=== PATIENT | male | born 1940 | race Two or more races ===

== ENCOUNTER → 2017-03-04 | Outpatient (CLI) | payer MEDICARE, OTHER ==
[2017-03-04 08:32] LABS: ALBUMIN 3.9 GM/DL (3.2-5.2); ALBUMIN/GLOBULIN RATIO 1.15 (1.00-1.93); BILIRUBIN,TOTAL 0.7 MG/DL (0.2-1.0); CREATININE FOR GFR 1.4 MG/DL (0.70-1.30); GLOMERULAR FILTRATION RATE 52.2 (>42); POTASSIUM SERUM 3.6 MEQ/L (3.5-5.1); TOTAL PROTEIN 7.3 GM/DL (6.4-8.2)
== END ==
LOC: M LAB 07:26
PROVIDERS: ATTEND Physician Assistant
DX: E78.00 Pure hypercholesterolemia, unspecified (principal); I50.42 Chronic combined systolic (congestive) and diastolic (congestive) heart failure; R73.9 Hyperglycemia, unspecified

== ENCOUNTER → 2017-10-31 | Outpatient (CLI) | payer MEDICARE, OTHER ==
[2017-10-31 07:53] LABS: ALBUMIN 3.9 GM/DL (3.2-5.2); ALBUMIN/GLOBULIN RATIO 1.15 (1.00-1.93); ALKALINE PHOSPHATASE 59 U/L (45-117); ALT/SGPT 29 U/L (12-78); ANION GAP 8 MEQ/L (8-16); AST/SGOT 15 U/L (7-37); BILIRUBIN,TOTAL 0.4 MG/DL (0.2-1.0); BLOOD UREA NITROGEN 25 MG/DL (7-18); CALCIUM LEVEL 8.8 MG/DL (8.8-10.2); CARBON DIOXIDE LEVEL 27 MEQ/L (21-32); CHLORIDE LEVEL 108 MEQ/L (98-107); CHOLESTEROL LEVEL 135 MG/DL (<200); CREATININE FOR GFR 1.36 MG/DL (0.70-1.30); GLUCOSE, FASTING 117 MG/DL (70-100); HDL CHOLESTEROL 45 MG/DL (>40); NON-HDL-C 90 MG/DL; POTASSIUM SERUM 4.2 MEQ/L (3.5-5.1); SODIUM LEVEL 143 MEQ/L (136-145); TOTAL PROTEIN 7.3 GM/DL (6.4-8.2); TRIGLYCERIDES LEVEL 90 MG/DL (<150)
== END ==
LOC: M LAB 06:57
DX: I25.10 Atherosclerotic heart disease of native coronary artery without angina pectoris (principal); E78.00 Pure hypercholesterolemia, unspecified; I50.42 Chronic combined systolic (congestive) and diastolic (congestive) heart failure
CPT/HCPCS: 80053

== ENCOUNTER → 2018-05-26 | Outpatient (CLI) | payer MEDICARE, OTHER ==
[2018-05-26 07:50] LABS: ESTIMATED AVERAGE GLUCOSE 151 MG/DL (60-110); HEMOGLOBIN A1c 6.9 %
[2018-05-26 07:52] LABS: ALKALINE PHOSPHATASE 66 U/L (45-117); ALT/SGPT 32 U/L (12-78); ANION GAP 8 MEQ/L (8-16); AST/SGOT 17 U/L (7-37); BILIRUBIN,TOTAL 0.4 MG/DL (0.2-1.0); BLOOD UREA NITROGEN 29 MG/DL (7-18); CALCIUM LEVEL 9.3 MG/DL (8.8-10.2); CARBON DIOXIDE LEVEL 27 MEQ/L (21-32); CHLORIDE LEVEL 109 MEQ/L (98-107); CREATININE FOR GFR 1.66 MG/DL (0.70-1.30); GLOMERULAR FILTRATION RATE 42.8 (>42); GLUCOSE, FASTING 116 MG/DL (70-100); POTASSIUM SERUM 4.5 MEQ/L (3.5-5.1); SODIUM LEVEL 144 MEQ/L (136-145)
[2018-05-26 07:53] LABS: ALBUMIN/GLOBULIN RATIO 1.25 (1.00-1.93); CHOLESTEROL LEVEL 128 MG/DL (<200); CHOLESTEROL RISK RATIO 3.282 (<5); HDL CHOLESTEROL 39 MG/DL (>40); LDL CHOLESTEROL 72 MG/DL (<100); NON-HDL-C 89 MG/DL; TOTAL PROTEIN 7.2 GM/DL (6.4-8.2); TRIGLYCERIDES LEVEL 86 MG/DL (<150)
[2018-05-26 08:00] LABS: MALB URINE SIEMENS 5.6 MG/L
[2018-05-26 08:03] LABS: MAU/CREAT RATIO 3.8 MCG/MG (0.0-30.0)
== END ==
LOC: M LAB 06:40
DX: E11.9 Type 2 diabetes mellitus without complications (principal)
CPT/HCPCS: 80053

== ENCOUNTER → 2018-11-24 | Outpatient (CLI) | payer MEDICARE, OTHER ==
[2018-11-24 11:25] LABS: ALBUMIN 3.8 GM/DL (3.2-5.2); BILIRUBIN,TOTAL 0.6 MG/DL (0.2-1.0); CALCIUM LEVEL 8.7 MG/DL (8.8-10.2); CHOLESTEROL RISK RATIO 4.424 (<5); CREATININE FOR GFR 1.79 MG/DL (0.70-1.30); GLOMERULAR FILTRATION RATE 39.2 (>42); TOTAL PROTEIN 7.5 GM/DL (6.4-8.2)
[2018-11-24 14:26] LABS: HEMOGLOBIN A1c 7.5 %
== END ==
LOC: M LAB 07:47
PROVIDERS: ATTEND Nurse Practitioner Family
DX: E11.9 Type 2 diabetes mellitus without complications (principal)

== ENCOUNTER 2019-04-27 10:04 | Emergency (ER) | payer MEDICARE, OTHER ==
[~2019-04-27] VITALS: Ht 167.6 cm; Wt 84.3 kg
[2019-04-27 10:05] VITALS: BP 134/75
[2019-04-27] MEDS ORDERED: CARV25TA (10:13)
[2019-04-27] MEDS ORDERED: MAG400TA (10:13)
[2019-04-27] MEDS ORDERED: JANU25TA (10:13)
[2019-04-27] MEDS ORDERED: FERR150C (10:13)
[2019-04-27] MEDS ORDERED: ALLO100T (10:13)
[2019-04-27] MEDS ORDERED: ATOR1TAB21 (10:13)
[2019-04-27] MEDS ORDERED: SPIR-10 (10:13)
[2019-04-27] MEDS ORDERED: FAMO40TA3 (10:13)
[2019-04-27] MEDS ORDERED: LISI-1046 (10:13)
[2019-04-27] MEDS ORDERED: AMOX500C PO (10:32)
[2019-04-27] MEDS ORDERED: ACET-897 PO (10:32)
[2019-04-27] MEDS ORDERED: AMOXICILLIN 500 MG CAP PO ONE (10:45)
[2019-04-27] MEDS ORDERED: IBUPROFEN 600 MG TAB PO ONE (10:45)
== END 2019-04-27 10:36 | disposition home or self-care (01) ==
LOC: M ED 10:04
DX: K04.7 Periapical abscess without sinus (principal); K08.89 Other specified disorders of teeth and supporting structures; E11.9 Type 2 diabetes mellitus without complications; K21.9 Gastro-esophageal reflux disease without esophagitis; I10 Essential (primary) hypertension; E78.5 Hyperlipidemia, unspecified

== ENCOUNTER → 2019-07-08 | Outpatient (CLI) | payer MEDICARE, OTHER ==
[~2019-07-08] MED LIST: ACET-897 PO; ALLO100T; AMOX500C PO; ATOR1TAB21; CARV25TA; FAMO40TA3; FERR150C; JANU25TA; LISI-1046; MAG400TA; SPIR-10
[2019-07-08 08:50] LABS: ALBUMIN 4.1 GM/DL (3.2-5.2); BILIRUBIN,TOTAL 0.6 MG/DL (0.2-1.0); CALCIUM LEVEL 9.8 MG/DL (8.8-10.2); CREATININE FOR GFR 1.65 MG/DL (0.70-1.30); GLOMERULAR FILTRATION RATE 42.9 (>35); TOTAL PROTEIN 7.7 GM/DL (6.4-8.2)
[2019-07-08 10:34] LABS: HEMOGLOBIN A1c 6.9 %
== END ==
LOC: M LAB 07:06
PROVIDERS: ATTEND Nurse Practitioner Family
DX: E11.9 Type 2 diabetes mellitus without complications (principal)

== ENCOUNTER → 2020-12-13 | Outpatient (REF) | payer MEDICARE, OTHER ==
[~2020-12-13] MED LIST changes: -LISI-1046; +LISI2.5T2; -MAG400TA; +MAGN400T35
[2020-12-13 16:47] LABS: CHOLESTEROL RISK RATIO 4.363 (<5); FREE T4 0.86 NG/DL (0.76-1.46); MAU/CREAT RATIO 4.2 MCG/MG (0.0-30.0); THYROID STIMULATING HORMONE 2.09 uIU/ML (0.358-3.740)
[2020-12-13 17:30] LABS: HEMOGLOBIN A1c 6.8 %
== END ==
LOC: M SFHCCLAY 10:21
PROVIDERS: ATTEND Nurse Practitioner Family
DX: E11.36 Type 2 diabetes mellitus with diabetic cataract (principal); M25.512 Pain in left shoulder; G89.29 Other chronic pain; I11.0 Hypertensive heart disease with heart failure; E78.00 Pure hypercholesterolemia, unspecified; I25.10 Atherosclerotic heart disease of native coronary artery without angina pectoris
CPT/HCPCS: 80061; 82043; 83036; 84439; 84443; G0463

== ENCOUNTER → 2021-02-28 | Outpatient (REF) | payer MEDICARE, OTHER ==
[2021-02-28 18:54] LABS: PERCENT SATURATION 24.8 % (19.7-50.0)
== END ==
LOC: M LAB REF 17:18
PROVIDERS: ATTEND Internal Medicine Nephrology
DX: D50.9 Iron deficiency anemia, unspecified (principal)

== ENCOUNTER → 2022-03-15 | Outpatient (REF) | payer MEDICARE, OTHER ==
[~2022-03-15] MED LIST changes: -LISI2.5T2; +LISI2.5T9
== END ==
LOC: M SFHCDERM 16:26
PROVIDERS: ATTEND Nurse Practitioner Family
DX: C44.329 Squamous cell carcinoma of skin of other parts of face (principal); L57.0 Actinic keratosis

== ENCOUNTER → 2022-05-30 | Outpatient (REF) | payer MEDICARE, OTHER | LOC: M SFHCDERM 14:23 | PROVIDERS: ATTEND Dermatology | DX: L57.0 Actinic keratosis (principal) ==

== ENCOUNTER → 2023-07-22 | Outpatient (CLI) | payer MEDICARE, OTHER ==
[2023-07-22 08:20] LABS: HEMATOCRIT 39.9 % (42.0-52.0); MEAN CORPUSCULAR HEMOGLOBIN 31.2 pg (27.0-33.0); MEAN CORPUSCULAR HGB CONC 32.6 g/dl (32.0-36.5); MEAN CORPUSCULAR VOLUME 95.7 fl (80.0-96.0); PLATELET COUNT, AUTOMATED 220 10^3/uL (150-450); RED BLOOD COUNT 4.17 10^6/uL (4.30-6.10)
[2023-07-22 08:47] LABS: ALBUMIN 3.9 G/DL (3.2-5.2); BILIRUBIN,TOTAL 0.8 MG/DL (0.3-1.2); CALCIUM LEVEL 9.1 MG/DL (8.3-10.6); CHOLESTEROL RISK RATIO 4.1 (<5); CREATININE FOR GFR 1.4 MG/DL (0.70-1.30); GLOMERULAR FILTRATION RATE 51.4 (>35); HDL CHOLESTEROL 38.5 MG/DL (>40); LDL CHOLESTEROL 90.7 MG/DL (<100); NON-HDL-C 119.5 MG/DL; TOTAL PROTEIN 7.3 G/DL (5.7-8.2)
== END ==
LOC: M LAB 07:32
PROVIDERS: ATTEND Physician Assistant
DX: E78.00 Pure hypercholesterolemia, unspecified (principal)

== ENCOUNTER → 2024-01-27 | Outpatient (CLI) | payer MEDICARE, OTHER ==
[2024-01-27 08:50] LABS: CALCIUM LEVEL 9.1 MG/DL (8.3-10.6); CREATININE FOR GFR 1.47 MG/DL (0.70-1.30); GLOMERULAR FILTRATION RATE 48.5 (>35); MAGNESIUM LEVEL 1.8 MG/DL (1.8-2.4); POTASSIUM SERUM 4.6 MMOL/L (3.5-5.1)
== END ==
LOC: M LAB 07:40
PROVIDERS: ATTEND Physician Assistant
DX: I50.42 Chronic combined systolic (congestive) and diastolic (congestive) heart failure (principal)

== ENCOUNTER 2024-08-04 17:05 | Inpatient (IN) | payer MEDICARE, OTHER ==
[~2024-08-04] VITALS: Ht 182.9 cm; Wt 80.9 kg
[~2024-08-04 17:05] MED LIST changes: -ATOR1TAB21; +ATOR1TAB21 PO; -CARV25TA; +CARV25TA PO; -FAMO40TA3; +FAMO40TA3 PO; -FERR150C; +FERR150C PO; -JANU25TA; +JANU25TA PO; -LISI2.5T9; +LISI2.5T9 PO; -MAGN400T35; +MAGN400T35 PO
[2024-08-04] MEDS: MORPHINE 4 MG/ML 1ML VIAL IV ONE ×2 (19:05→20:18)
[2024-08-04 19:44] LABS: BASO # 0.1 10^3/uL (0.0-0.2); BASO % 0.7 % (0.0-1.0); EOS # 0.1 10^3/uL (0.0-0.5); EOS % 0.9 % (0.0-3.0); HEMATOCRIT 40.2 % (42.0-52.0); HEMOGLOBIN 13.8 g/dl (13.5-17.5); LYMPH # 0.9 10^3/uL (1.5-5.0); LYMPH % 5.9 % (24.0-44.0); MEAN CORPUSCULAR HEMOGLOBIN 32.1 pg (27.0-33.0); MEAN CORPUSCULAR HGB CONC 34.3 g/dl (32.0-36.5); MEAN CORPUSCULAR VOLUME 93.5 fl (80.0-96.0); MONO # 1.6 10^3/uL (0.0-0.8); MONO % 10.3 % (2.0-8.0); NEUTROPHILS # 12.4 10^3/uL (1.5-8.5); NEUTROPHILS % 81.7 % (36.0-66.0); PLATELET COUNT, AUTOMATED 219 10^3/uL (150-450); WHITE BLOOD COUNT 15.1 10^3/uL (4.0-10.0)
[2024-08-04 20:04] LABS: INR 1.02; PARTIAL THROMBOPLASTIN TIME 25.3 SECONDS (24.8-34.2); PROTHROMBIN TIME 13.7 SECONDS (12.5-14.5)
[2024-08-04 20:06] LABS: CK-MB VALUE MASS 2.4 NG/ML (<3.6)
[2024-08-04 20:08] LABS: BLOOD UREA NITROGEN 23 MG/DL (9-23); CALCIUM LEVEL 9.3 MG/DL (8.3-10.6); CARBON DIOXIDE LEVEL 24 MMOL/L (20-31); CHLORIDE LEVEL 106 MMOL/L (98-107); CREATININE FOR GFR 1.19 MG/DL (0.70-1.30); GLOMERULAR FILTRATION RATE > 60.0 (>35); GLUCOSE, FASTING 141 MG/DL (74-106); POTASSIUM SERUM 4.1 MMOL/L (3.5-5.1); SODIUM LEVEL 140 MMOL/L (136-145)
[2024-08-04 20:14] LABS: CPK CREATINE PHOSPHOKINASE 328 U/L (46-171); MB/CK RELATIVE INDEX 0.73 (< OR =4)
[2024-08-04] MEDS: BOOSTRIX VACCINE (TETANUS/DIPHTH/ACEL. PERTUSSIS) 0.5ML SYR IM.IMMUN ONE (20:17)
[2024-08-04] MEDS ORDERED: ASPI81TA26 PO (21:07)
[2024-08-04] MEDS ORDERED: HOME MED LIST COMPLETE! XX SCH (21:10)
[2024-08-04] MEDS ORDERED: ACETAMINOPHEN 325 MG TAB PO PRN (22:50)
[2024-08-04] MEDS ORDERED: KETOROLAC TROMETHAMINE 10 MG TAB PO PRN (22:50)
[2024-08-04] MEDS ORDERED: ISOVUE-370 76% 100ML VIAL As Ordered ONE (23:06)
[2024-08-04 23:39] VITALS: BP 156/86; TEMP 97.7; O2SAT 95
[2024-08-05] MEDS ORDERED: GLUCAGON INJ 1MG VIAL SC PRN (00:05)
[2024-08-05] MEDS ORDERED: GLUCOSE 4 GM CHEW PO PRN (00:05)
[2024-08-05] MEDS ORDERED: DEXTROSE 50% 50ML SYRINGE IV PRN (00:05)
[2024-08-05] MEDS: LISINOPRIL *2.5 MG* TAB PO SCH (00:20)
[2024-08-05] MEDS: CARVedilol 12.5 MG TAB PO SCH (00:20)
[2024-08-05] MEDS: ATORVASTATIN 10 MG TAB PO SCH (00:20)
[2024-08-05] MEDS: INSULIN LISPRO (NovoLOG) PER UNIT SC SCH (00:27)
[2024-08-05] MEDS: LR 1,000 ML IV ONE (00:27)
[2024-08-05] MEDS: MORPHINE 2 MG/ML 1ML VIAL IV PRN (00:27)
[2024-08-05 04:00] VITALS: BP 141/88; TEMP 97.7; O2SAT 92
[2024-08-05 06:50] LABS: ALBUMIN 3.4 G/DL (3.2-5.2); ALKALINE PHOSPHATASE 62 U/L (40-129); ALT/SGPT 23 U/L (7.0-40); AST/SGOT 25 U/L (<34); BILIRUBIN,TOTAL 1.1 MG/DL (0.3-1.2); BLOOD UREA NITROGEN 20 MG/DL (9-23); CALCIUM LEVEL 9.4 MG/DL (8.3-10.6); CARBON DIOXIDE LEVEL 25 MMOL/L (20-31); CHLORIDE LEVEL 104 MMOL/L (98-107); CREATININE FOR GFR 1.12 MG/DL (0.70-1.30); GLOMERULAR FILTRATION RATE > 60.0 (>35); GLUCOSE, FASTING 139 MG/DL (74-106); POTASSIUM SERUM 3.8 MMOL/L (3.5-5.1); SODIUM LEVEL 138 MMOL/L (136-145)
[2024-08-05 07:29] LABS: BASO # 0.1 10^3/uL (0.0-0.2); BASO % 0.8 % (0.0-1.0); EOS # 0.2 10^3/uL (0.0-0.5); EOS % 1.1 % (0.0-3.0); HEMATOCRIT 39.7 % (42.0-52.0); HEMOGLOBIN 13.6 g/dl (13.5-17.5); LYMPH # 0.7 10^3/uL (1.5-5.0); LYMPH % 4.8 % (24.0-44.0); MEAN CORPUSCULAR HEMOGLOBIN 31.9 pg (27.0-33.0); MEAN CORPUSCULAR HGB CONC 34.3 g/dl (32.0-36.5); MONO # 1.4 10^3/uL (0.0-0.8); MONO % 9.2 % (2.0-8.0); NEUTROPHILS # 12.4 10^3/uL (1.5-8.5); NEUTROPHILS % 83.3 % (36.0-66.0); PLATELET COUNT, AUTOMATED 201 10^3/uL (150-450); RED BLOOD COUNT 4.27 10^6/uL (4.30-6.10); WHITE BLOOD COUNT 14.9 10^3/uL (4.0-10.0)
[2024-08-05] MEDS: HEPARIN SOD (PORCINE) 5000UNITS/ML 1ML VIAL/SYRINGE SC SCH (09:00)
[2024-08-05 10:51] VITALS: BP 132/75
[2024-08-05 11:22] LABS: PROCALCITONIN 0.17 ng/ml
[2024-08-05] MEDS: D5W/0.9% SODIUM CHLORIDE 1,000 ML IV SCH (11:32)
[2024-08-05 12:00] VITALS: BP 147/98; TEMP 97.5; O2SAT 100
[2024-08-05 20:00] VITALS: BP 167/105; TEMP 97.8; O2SAT 99
[2024-08-06] VITALS (10 sets, daily range): BP systolic 117–166; BP diastolic 69–105; TEMP 97.3–98.1; O2SAT 90–95
[2024-08-06 06:56] LABS: BASO # 0.1 10^3/uL (0.0-0.2); BASO % 0.6 % (0.0-1.0); EOS # 0.3 10^3/uL (0.0-0.5); EOS % 1.7 % (0.0-3.0); HEMOGLOBIN 13.3 g/dl (13.5-17.5); LYMPH % 6.5 % (24.0-44.0); MEAN CORPUSCULAR HEMOGLOBIN 31.5 pg (27.0-33.0); MEAN CORPUSCULAR HGB CONC 33.3 g/dl (32.0-36.5); MEAN CORPUSCULAR VOLUME 94.8 fl (80.0-96.0); MONO # 1.8 10^3/uL (0.0-0.8); MONO % 11.8 % (2.0-8.0); NEUTROPHILS # 12.2 10^3/uL (1.5-8.5); NEUTROPHILS % 78.8 % (36.0-66.0); PLATELET COUNT, AUTOMATED 180 10^3/uL (150-450); RED BLOOD COUNT 4.22 10^6/uL (4.30-6.10); WHITE BLOOD COUNT 15.5 10^3/uL (4.0-10.0)
[2024-08-06 07:22] LABS: BLOOD UREA NITROGEN 23 MG/DL (9-23); CALCIUM LEVEL 9.1 MG/DL (8.3-10.6); CARBON DIOXIDE LEVEL 22 MMOL/L (20-31); CHLORIDE LEVEL 105 MMOL/L (98-107); CREATININE FOR GFR 1.18 MG/DL (0.70-1.30); GLOMERULAR FILTRATION RATE > 60.0 (>35); GLUCOSE, FASTING 131 MG/DL (74-106); MAGNESIUM LEVEL 1.5 MG/DL (1.8-2.4); POTASSIUM SERUM 3.9 MMOL/L (3.5-5.1); SODIUM LEVEL 140 MMOL/L (136-145)
[2024-08-06] MEDS ORDERED: D5W/0.9% SODIUM CHLORIDE 1,000 ML IV SCH (08:00)
[2024-08-06] MEDS: MAG SULF 1GM/100ML (MAG RUN) 1 GM in IV 1 EA IV SCH ×2 (08:18→13:57)
[2024-08-06] MEDS ORDERED: ONDANSETRON 4MG 2ML VIAL IV PRN (09:40)
[2024-08-06] MEDS ORDERED: fentaNYL 100 MCG/2 ML INJECTION IV PRN (09:40)
[2024-08-06] MEDS: VANCOMYCIN 500MG/10ML VIAL As Ordered ONE (09:41)
[2024-08-06] MEDS ORDERED: LIDOCAINE 2% 100MG/5ML SDV (FOR ANES.) As Ordered ONE (09:45)
[2024-08-06] MEDS ORDERED: fentaNYL 100 MCG/2 ML INJECTION As Ordered ONE (09:45)
[2024-08-06] MEDS ORDERED: ONDANSETRON 4MG 2ML VIAL As Ordered ONE (09:45)
[2024-08-06] MEDS ORDERED: KETOROLAC 60MG 2ML VIAL As Ordered ONE (09:45)
[2024-08-06] MEDS ORDERED: propofoL 200 MG/20 ML VIAL As Ordered ONE (09:45)
[2024-08-06] MEDS: ceFAZolin 2 GM/D5W 50 ML IV BAG As Ordered ONE (10:20)
[2024-08-06] MEDS ORDERED: VASOPRESSIN INJ 20UNITS/ML 1ML VIAL As Ordered ONE (11:09)
[2024-08-06] MEDS: TRANEXAMIC ACID 100 MG/ML 10ML VIAL As Ordered ONE (11:19)
[2024-08-06] MEDS ORDERED: DEXTROSE 50% 50ML SYRINGE IV PRN (14:30)
[2024-08-06] MEDS ORDERED: GLUCOSE 4 GM CHEW PO PRN (14:30)
[2024-08-06] MEDS: INSULIN LISPRO (NovoLOG) PER UNIT SC SCH ×2 (18:10→20:43)
[2024-08-06] MEDS: ceFAZolin SOD 2 GM in IV 1 EA IV SCH (18:10)
[2024-08-07 02:04] VITALS: BP 113/78; TEMP 97.7; O2SAT 96
[2024-08-07 05:34] LABS: BASO % 0.1 % (0.0-1.0); HEMATOCRIT 35.1 % (42.0-52.0); HEMOGLOBIN 11.8 g/dl (13.5-17.5); LYMPH # 0.5 10^3/uL (1.5-5.0); LYMPH % 3.3 % (24.0-44.0); MEAN CORPUSCULAR HEMOGLOBIN 31.5 pg (27.0-33.0); MEAN CORPUSCULAR HGB CONC 33.6 g/dl (32.0-36.5); MEAN CORPUSCULAR VOLUME 93.6 fl (80.0-96.0); MONO # 1.3 10^3/uL (0.0-0.8); MONO % 7.8 % (2.0-8.0); NEUTROPHILS # 14.5 10^3/uL (1.5-8.5); PLATELET COUNT, AUTOMATED 177 10^3/uL (150-450); RED BLOOD COUNT 3.75 10^6/uL (4.30-6.10); WHITE BLOOD COUNT 16.5 10^3/uL (4.0-10.0)
[2024-08-07 06:00] VITALS: BP 133/81; TEMP 98.1; O2SAT 93
[2024-08-07 06:04] LABS: CALCIUM LEVEL 8.7 MG/DL (8.3-10.6); CREATININE FOR GFR 1.41 MG/DL (0.70-1.30); GLOMERULAR FILTRATION RATE 50.9 (>35); MAGNESIUM LEVEL 2.1 MG/DL (1.8-2.4); POTASSIUM SERUM 4.2 MMOL/L (3.5-5.1)
[2024-08-07 08:34] VITALS: BP 153/71
[2024-08-07] MEDS ORDERED: OXYC-517 PO (09:38)
[2024-08-07] MEDS ORDERED: oxyCODONE 5MG TAB PO PRN (09:40)
[2024-08-07] MEDS ORDERED: INSUHUMDS SC (09:40)
[2024-08-07] MEDS ORDERED: HEPA500023 SC (09:41)
[2024-08-07] MEDS: NS (Normal Saline) 0.9% 1,000 ML IV SCH (10:02)
[2024-08-07 10:30] VITALS: BP 100/59; TEMP 97.7; O2SAT 92
[2024-08-07] MEDS: ASPIRIN 81MG ENTERIC TABLET PO SCH (10:30)
[2024-08-07] MEDS: FAMOTIDINE 20 MG TAB PO SCH (10:30)
[2024-08-07 14:30] VITALS: BP 102/60; TEMP 97.5; O2SAT 94
[2024-08-07] MEDS: oxyCODONE 5MG TAB PO PRN (15:04)
== END 2024-08-07 15:20 | DRG 522 ==
LOC: M ED 17:05 → EDBD 17:05 → M ED INP 22:47 → M MSPAV 23:34
PROVIDERS: ADMIT Student in an Organized Health Care Education/Training Program; ATTEND Internal Medicine
PROC: B246ZZZ Ultrasonography of Right and Left Heart (ICD-10-PCS; 2024-08-05)
PROC: 0SRS0J9 Replacement of Left Hip Joint, Femoral Surface with Synthetic Substitute, Cemented, Open Approach (ICD-10-PCS; principal; 2024-08-06 09:00)
DX: S72.012A Unspecified intracapsular fracture of left femur, initial encounter for closed fracture (principal); I50.32 Chronic diastolic (congestive) heart failure; I13.0 Hypertensive heart and chronic kidney disease with heart failure and stage 1 through stage 4 chronic kidney disease, or unspecified chronic kidney disease; W18.30XA Fall on same level, unspecified, initial encounter; Y92.019 Unspecified place in single-family (private) house as the place of occurrence of the external cause; Y93.89 Activity, other specified; Y99.8 Other external cause status; E78.5 Hyperlipidemia, unspecified; E11.22 Type 2 diabetes mellitus with diabetic chronic kidney disease; N18.30 Chronic kidney disease, stage 3 unspecified; F03.90 Unspecified dementia, unspecified severity, without behavioral disturbance, psychotic disturbance, mood disturbance, and anxiety; Z87.891 Personal history of nicotine dependence; H91.10 Presbycusis, unspecified ear; R91.8 Other nonspecific abnormal finding of lung field; Z79.82 Long term (current) use of aspirin; Z79.899 Other long term (current) drug therapy

== ENCOUNTER 2024-08-07 12:56 | Inpatient (IN) | payer MEDICARE, OTHER ==
[~2024-08-07] VITALS: Ht 167.6 cm; Wt 78.5 kg
[2024-08-07] MEDS: BISACODYL 5MG TAB PO SCH (09:00)
[~2024-08-07 12:56] MED LIST changes: +ASPI81TA26 PO; +HEPA500023 SC; +INSUHUMDS SC; +OXYC-517 PO
[2024-08-07] MEDS ORDERED: DEXTROSE 50% 50ML SYRINGE IV PRN (13:10)
[2024-08-07] MEDS ORDERED: oxyCODONE 5MG TAB PO PRN ×2 (13:10)
[2024-08-07] MEDS ORDERED: GLUCOSE 4 GM CHEW PO PRN (13:10)
[2024-08-07] MEDS ORDERED: GLUCAGON INJ 1MG VIAL SC PRN (13:10)
[2024-08-07] MEDS ORDERED: MAALOX 30 ML SUSP *UDC PO PRN (13:15)
[2024-08-07] MEDS ORDERED: SIMETHICONE 80MG CHEW TAB PO PRN (13:15)
[2024-08-07] MEDS ORDERED: MIRALAX *UNIT DOSE* 17GM PACKET PO PRN (13:15)
[2024-08-07] MEDS ORDERED: MOM 30ML SUSPENSION UDC PO PRN (13:15)
[2024-08-07] MEDS ORDERED: BISACODYL 10MG SUPP PR PRN (13:15)
[2024-08-07] MEDS ORDERED: ONDANSETRON 4MG TAB PO PRN (13:15)
[2024-08-07 15:30] VITALS: BP 144/74; TEMP 97; O2SAT 95
[2024-08-07] MEDS: INSULIN LISPRO (NovoLOG) PER UNIT SC SCH (18:34)
[2024-08-07 20:00] VITALS: BP 130/67; TEMP 97.6; O2SAT 93
[2024-08-07] MEDS: DOCUSATE SODIUM 100MG CAPSULE PO SCH (21:31)
[2024-08-07] MEDS: ACETAMINOPHEN 500 MG TAB PO SCH (21:31)
[2024-08-07] MEDS: ATORVASTATIN 10 MG TAB PO SCH (21:32)
[2024-08-07] MEDS: CARVedilol 12.5 MG TAB PO SCH (21:32)
[2024-08-07] MEDS: MAGNESIUM OXIDE 400MG TAB (MAG-OX) PO SCH (21:33)
[2024-08-07] MEDS: SENNA 8.6 MG TAB (SENOKOT) PO SCH (21:33)
[2024-08-07] MEDS: HEPARIN SOD (PORCINE) 5000UNITS/ML 1ML VIAL/SYRINGE SC SCH (21:33)
[2024-08-08 05:59] VITALS: TEMP 98.1
[2024-08-08 07:10] VITALS: BP 165/84; TEMP 97.9; O2SAT 95
[2024-08-08 07:14] LABS: BASO % 0.1 % (0.0-1.0); EOS % 0.1 % (0.0-3.0); HEMATOCRIT 32.1 % (42.0-52.0); HEMOGLOBIN 10.7 g/dl (13.5-17.5); LYMPH # 0.7 10^3/uL (1.5-5.0); MEAN CORPUSCULAR HEMOGLOBIN 31.6 pg (27.0-33.0); MEAN CORPUSCULAR HGB CONC 33.3 g/dl (32.0-36.5); MEAN CORPUSCULAR VOLUME 94.7 fl (80.0-96.0); MONO # 1.8 10^3/uL (0.0-0.8); MONO % 12.5 % (2.0-8.0); NEUTROPHILS # 11.6 10^3/uL (1.5-8.5); NEUTROPHILS % 81.4 % (36.0-66.0); PLATELET COUNT, AUTOMATED 186 10^3/uL (150-450); RED BLOOD COUNT 3.39 10^6/uL (4.30-6.10); WHITE BLOOD COUNT 14.3 10^3/uL (4.0-10.0)
[2024-08-08] MEDS: FAMOTIDINE 20 MG TAB PO SCH (07:22)
[2024-08-08] MEDS: ASPIRIN 81MG ENTERIC TABLET PO SCH (07:22)
[2024-08-08 07:44] LABS: CALCIUM LEVEL 8.6 MG/DL (8.3-10.6); CREATININE FOR GFR 1.49 MG/DL (0.70-1.30); GLOMERULAR FILTRATION RATE 47.7 (>35); POTASSIUM SERUM 4.5 MMOL/L (3.5-5.1)
[2024-08-08 11:41] VITALS: BP 139/71; TEMP 97.5; O2SAT 96
[2024-08-08 19:38] VITALS: BP 128/62; TEMP 97.6; O2SAT 92
[2024-08-09 04:49] VITALS: BP 137/75; TEMP 97.6; O2SAT 97
[2024-08-09 12:00] VITALS: BP 110/66; TEMP 98.7; O2SAT 96
[2024-08-09 20:20] VITALS: BP 140/75; TEMP 97.6; O2SAT 97
[2024-08-10 04:47] VITALS: BP 158/77; TEMP 97.6; O2SAT 96
[2024-08-10 08:16] VITALS: BP 102/67
[2024-08-10 09:47] LABS: BASO # 0.1 10^3/uL (0.0-0.2); BASO % 0.7 % (0.0-1.0); EOS # 0.3 10^3/uL (0.0-0.5); EOS % 3.2 % (0.0-3.0); HEMATOCRIT 35.6 % (42.0-52.0); HEMOGLOBIN 11.7 g/dl (13.5-17.5); LYMPH # 1.1 10^3/uL (1.5-5.0); LYMPH % 9.9 % (24.0-44.0); MEAN CORPUSCULAR HGB CONC 32.9 g/dl (32.0-36.5); MEAN CORPUSCULAR VOLUME 97.3 fl (80.0-96.0); MONO % 8.9 % (2.0-8.0); NEUTROPHILS # 8.1 10^3/uL (1.5-8.5); NEUTROPHILS % 75.8 % (36.0-66.0); PLATELET COUNT, AUTOMATED 236 10^3/uL (150-450); RED BLOOD COUNT 3.66 10^6/uL (4.30-6.10); WHITE BLOOD COUNT 10.7 10^3/uL (4.0-10.0)
[2024-08-10 10:17] LABS: CALCIUM LEVEL 9.1 MG/DL (8.3-10.6); CREATININE FOR GFR 1.41 MG/DL (0.70-1.30); GLOMERULAR FILTRATION RATE 50.9 (>35); POTASSIUM SERUM 4.1 MMOL/L (3.5-5.1)
[2024-08-10 11:30] VITALS: BP 88/49; TEMP 97.8; O2SAT 97
[2024-08-10] MEDS ORDERED: traMADol 50 MG TAB PO PRN ×2 (11:45)
[2024-08-10 12:00] VITALS: BP 116/57; TEMP 97.1; O2SAT 93
[2024-08-10] MEDS: SENNA 8.6 MG TAB (SENOKOT) PO ONE (12:01)
[2024-08-10] MEDS: MAGNESIUM CITRATE 300ML BTL PO ONE (12:04)
[2024-08-10 14:28] VITALS: BP 89/57
[2024-08-10] MEDS ORDERED: MIDODRINE 5 MG TAB PO PRN (16:10)
[2024-08-10 20:00] VITALS: BP 132/70; TEMP 97.6; O2SAT 94
[2024-08-10] MEDS: SENOKOT S TAB PO SCH (20:18)
[2024-08-11 04:00] VITALS: BP 142/70; TEMP 97.4; O2SAT 97
[2024-08-11] MEDS: BISACODYL 5MG TAB PO SCH (08:38)
[2024-08-11 12:00] VITALS: BP 116/67; TEMP 97; O2SAT 98
[2024-08-11 16:42] LABS: KETONE, URINE AUTO RFX NEGATIVE (NEGATIVE); LEUKOCYTE ESTERASE UR AUTO RFX NEGATIVE (NEGATIVE)
[2024-08-11 20:00] VITALS: BP 143/78; TEMP 98.3; O2SAT 95
[2024-08-12 04:00] VITALS: BP 141/91; TEMP 97.7; O2SAT 99
[2024-08-12 12:00] VITALS: BP 136/62; TEMP 97.6; O2SAT 100
[2024-08-12 19:47] VITALS: BP 138/69; TEMP 97.5; O2SAT 98
[2024-08-13 04:00] VITALS: BP 156/85; TEMP 97.6; O2SAT 98
[2024-08-13 07:38] VITALS: BP 130/80
[2024-08-13] MEDS: SITagliptin 50 MG TAB (JANUVIA) PO SCH (07:41)
[2024-08-13 12:00] VITALS: BP 115/57; TEMP 97.8; O2SAT 97
[2024-08-13 20:23] VITALS: BP 147/90; TEMP 97.3; O2SAT 99
[2024-08-14 04:59] VITALS: BP 142/88; TEMP 97.6; O2SAT 97
[2024-08-14 12:00] VITALS: BP 105/54; TEMP 97.3; O2SAT 96
[2024-08-14] MEDS ORDERED: SENN-52 PO (15:19)
[2024-08-14] MEDS ORDERED: SITA50TAB PO (15:19)
[2024-08-14 20:00] VITALS: BP 137/63; TEMP 97.7; O2SAT 96
[2024-08-15 04:00] VITALS: BP 145/70; TEMP 97.3; O2SAT 96
[2024-08-15 12:00] VITALS: BP 122/72; TEMP 97.7; O2SAT 96
[2024-08-15 20:00] VITALS: BP 124/61; TEMP 98.8; O2SAT 98
[2024-08-16 04:00] VITALS: BP 127/65; TEMP 98.8; O2SAT 97
[2024-08-16 12:00] VITALS: BP 114/56; TEMP 97.5; O2SAT 95
[2024-08-16 19:36] VITALS: BP 122/62; TEMP 97.6; O2SAT 97
[2024-08-17 04:38] VITALS: BP 133/63; TEMP 97.6; O2SAT 97
[2024-08-17 07:54] VITALS: BP 130/60
[2024-08-17 12:00] VITALS: BP 111/57; TEMP 96.9; O2SAT 97
== END 2024-08-17 12:40 | disposition home or self-care (01) | DRG 560 ==
LOC: M MS4PR 15:25 → M PM&R 18:59
PROVIDERS: ADMIT Physical Medicine & Rehabilitation; ATTEND Physical Medicine & Rehabilitation
DX: S72.012D Unspecified intracapsular fracture of left femur, subsequent encounter for closed fracture with routine healing (principal); I50.32 Chronic diastolic (congestive) heart failure; I13.0 Hypertensive heart and chronic kidney disease with heart failure and stage 1 through stage 4 chronic kidney disease, or unspecified chronic kidney disease; E78.5 Hyperlipidemia, unspecified; E11.22 Type 2 diabetes mellitus with diabetic chronic kidney disease; N18.30 Chronic kidney disease, stage 3 unspecified; Z96.642 Presence of left artificial hip joint; Z74.09 Other reduced mobility; Z74.1 Need for assistance with personal care; Z87.891 Personal history of nicotine dependence; R91.8 Other nonspecific abnormal finding of lung field; Z79.82 Long term (current) use of aspirin; Z79.4 Long term (current) use of insulin; Z79.899 Other long term (current) drug therapy; H91.10 Presbycusis, unspecified ear; I95.9 Hypotension, unspecified; K59.00 Constipation, unspecified; H91.93 Unspecified hearing loss, bilateral

== ENCOUNTER → 2024-08-31 | Outpatient (CLI) | payer MEDICARE, OTHER ==
[~2024-08-31] MED LIST changes: +SENN-52 PO; +SITA50TAB PO
== END ==
LOC: M SOG 12:58
PROVIDERS: ATTEND Physician Assistant
DX: S72.002A Fracture of unspecified part of neck of left femur, initial encounter for closed fracture (principal)

== ENCOUNTER → 2024-09-30 | Outpatient (CLI) | payer MEDICARE, OTHER | LOC: M SOG 07:53 | PROVIDERS: ATTEND Physician Assistant | DX: Z96.642 Presence of left artificial hip joint (principal) ==

== ENCOUNTER → 2024-11-11 | Outpatient (CLI) | payer MEDICARE, OTHER | LOC: M SOG 07:52 | PROVIDERS: ATTEND Orthopaedic Surgery | DX: S72.002A Fracture of unspecified part of neck of left femur, initial encounter for closed fracture (principal); W18.30XA Fall on same level, unspecified, initial encounter; Y92.009 Unspecified place in unspecified non-institutional (private) residence as the place of occurrence of the external cause ==

== ENCOUNTER → 2025-03-19 | Outpatient (REF) | payer MEDICARE, OTHER ==
[2025-03-19 17:49] LABS: ALT/SGPT 27.0 U/L (7.0-40); AST/SGOT 20.0 U/L (<34); CALCIUM LEVEL 8.6 MG/DL (8.3-10.6); CARBON DIOXIDE LEVEL 23.0 MMOL/L (20-31); CHLORIDE LEVEL 106.0 MMOL/L (98-107); CHOLESTEROL LEVEL 124.0 MG/DL (<200); CHOLESTEROL RISK RATIO 2.91 (<5); CREATININE FOR GFR 1.46 MG/DL (0.70-1.30); GLOMERULAR FILTRATION RATE 46.5 (>35); LDL CHOLESTEROL 68.2 MG/DL (<100); NON-HDL-C 81.4 MG/DL; POTASSIUM SERUM 4.1 MMOL/L (3.5-5.1); SODIUM LEVEL 144.0 MMOL/L (136-145); TRIGLYCERIDES LEVEL 66.0 MG/DL (<150)
[2025-03-19 17:51] LABS: FREE T4 1.01 NG/DL (0.89-1.76)
[2025-03-19 18:08] LABS: BASO # 0.1 10^3/uL (0.0-0.2); BASO % 1.0 % (0.0-1.0); EOS # 0.5 10^3/uL (0.0-0.5); EOS % 6.4 % (0.0-3.0); LYMPH # 1.3 10^3/uL (1.5-5.0); LYMPH % 17.1 % (24.0-44.0); MONO # 1.1 10^3/uL (0.0-0.8); MONO % 13.5 % (2.0-8.0); NEUTROPHILS # 4.8 10^3/uL (1.5-8.5); NEUTROPHILS % 61.5 % (36.0-66.0); PLATELET COUNT, AUTOMATED 190 10^3/uL (150-450)
[2025-03-19 18:11] LABS: ESTIMATED AVERAGE GLUCOSE 151.0 MG/DL (60-110)
== END ==
LOC: M SFHCLERA 08:20
PROVIDERS: ATTEND Family Medicine
DX: Z00.00 Encounter for general adult medical examination without abnormal findings (principal); I11.0 Hypertensive heart disease with heart failure; E78.00 Pure hypercholesterolemia, unspecified; I50.9 Heart failure, unspecified; E11.36 Type 2 diabetes mellitus with diabetic cataract; I25.10 Atherosclerotic heart disease of native coronary artery without angina pectoris